=== PATIENT | female | born 1970 | race Caucasian/White ===

== ENCOUNTER 2023-03-27 09:54 | Day surgery (SDC) | payer OTHER ==
[~2023-03-27] VITALS: Ht 165.1 cm; Wt 70.3 kg
[2023-03-27] MEDS ORDERED: DEXT 5% / NACL 0.45% 500 ML IV ONE (11:18)
[2023-03-27] MEDS ORDERED: LIDOCAINE 2% 100 MG/5 ML UJET TP ONE (11:36)
[2023-03-27] MEDS ORDERED: fentaNYL citrate 0.05 MG/ML VIAL ONE (11:36)
[2023-03-27] MEDS ORDERED: fentaNYL citrate 0.05 MG/ML VIAL IVP ONE (12:40)
== END 2023-03-27 12:50 | disposition home or self-care (01) ==
LOC: MDS 09:54 → MMU 10:18 → MDS 12:50
PROVIDERS: ATTEND Internal Medicine Gastroenterology
DX: Z12.11 Encounter for screening for malignant neoplasm of colon (principal); K63.5 Polyp of colon; K57.30 Diverticulosis of large intestine without perforation or abscess without bleeding; J45.909 Unspecified asthma, uncomplicated; F41.9 Anxiety disorder, unspecified; K21.9 Gastro-esophageal reflux disease without esophagitis; F32.A Depression, unspecified; Z88.1 Allergy status to other antibiotic agents; Z79.899 Other long term (current) drug therapy
CPT/HCPCS: 45385; J3010